=== PATIENT | male | born 1950 | race Caucasian/White ===

== ENCOUNTER 2021-10-26 10:13 | Outpatient (CLI) | payer MEDICARE, OTHER ==
[2021-10-26 11:30] LABS: #Eosinphils 0.1 10x3/uL (0.0-0.5); #Monocytes 0.6 10x3/uL (0.0-1.1); #Neutrophils 2.4 10x3/uL (1.5-8.4); %Basophils 0.4 % (0.0-2.0); %Eosinophils 1.4 % (0.0-6.0); %Lymphocytes 35.5 % (18.0-47.0); %Monocytes 13.2 % (0.0-10.0); %Neutrophils 49.3 % (40.0-75.0); Hemoglobin 16.1 g/dL (13.5-17.5); Mean Corpuscular HGB CONC 33.5 g/dL (32.0-36.0); Mean Corpuscular Hemoglobin 31.8 pg (27.0-33.0); Mean Corpuscular Volume 95.1 fl (81.2-95.1); Mean Platelet Volume 10.3 fl (7.4-10.4); Platelet Count 190 10x3/uL (150-450); RBC Distribution Width 12.3 % (11.5-14.5); Red Blood Cell (RBC) Count 5.06 10x6/uL (4.32-5.72); White Blood Cell (WBC) Count 4.8 10x3/uL (3.5-10.5)
[2021-10-26 11:47] LABS: Anion Gap 16 mmol/L (10-20); BUN (Urea Nitrogen) 21 mg/dL (8.4-25.7); Calc. Creatinine Clearance 0 mL/min (70-130); Calcium 9.3 mg/dL (7.8-10.44); Carbon Dioxide 28 mmol/L (23-31); Chloride 102 mmol/L (98-107); Glucose 86 mg/dL (83-110); Potassium 3.6 mmol/L (3.5-5.1); Sodium 142 mmol/L (136-145)
[2021-10-26 11:50] LABS: INR-International Normal Ratio 0.9; Prothrombin Time 10.5 sec (9.5-12.1)
[2021-10-26 19:53] LABS: SARS-CoV-2 PCR by NAA DETECTED (NotDetected)
== END 2021-10-26 10:14 | disposition home or self-care (01) ==
LOC: LABBT 10:13
PROVIDERS: ATTEND Orthopaedic Surgery
DX: U07.1 COVID-19 (principal); Z01.818 Encounter for other preprocedural examination; M19.011 Primary osteoarthritis, right shoulder
CPT/HCPCS: 80048; 85025; 85610; 93005; U0003; U0005; 93010

== ENCOUNTER 2021-11-26 06:03 | Observation (INO) | payer MEDICARE ==
[2021-11-26] MEDS ORDERED: Midazolam HCl 2 mg/2 ml Vial ONE (06:37)
[2021-11-26] MEDS ORDERED: Fentanyl 100 MCG/2 ML VIAL ONE ×3 (06:37→10:55)
[2021-11-26] MEDS ORDERED: Sodium Chloride 0.9% 10 ML ONE (06:42)
[2021-11-26] MEDS ORDERED: Tranexamic Acid 1,000 MG/10 ML VIAL ONE (06:49)
[2021-11-26] MEDS ORDERED: Sodium Chloride 0.9% 100 ML ONE (06:49)
[2021-11-26] MEDS ORDERED: Vancomycin 1 GM/200 ML BAG ONE (06:49)
[2021-11-26] MEDS ORDERED: Lidocaine 1% (PF) 30 ML VIAL ONE (06:59)
[2021-11-26] MEDS ORDERED: PHENYLEPHRINE-NS 100 MCG/ML 10 ML SYRINGE ONE ×2 (07:12→09:08)
[2021-11-26] MEDS ORDERED: Rocuronium Bromide 10 MG/ML (10ML VIAL) ONE (07:12)
[2021-11-26] MEDS ORDERED: Lidocaine 1% PF 5 ML VIAL ONE (07:12)
[2021-11-26] MEDS ORDERED: Ondansetron PF 4 MG/2 ML Vial ONE (07:12)
[2021-11-26] MEDS ORDERED: Dexamethasone 20 MG/5 ML VIAL ONE (07:12)
[2021-11-26] MEDS ORDERED: PROPOFOL 200 MG/20 ML VIAL ONE (07:12)
[2021-11-26] MEDS ORDERED: Bupivacaine HCl 0.5%/Epinephrine 1:200,000/PF 30 ml Vial ONE (07:15)
[2021-11-26] MEDS ORDERED: ceFAZolin 2 GM/Dextrose 50 ML IVPB ONE (07:16)
[2021-11-26] MEDS ORDERED: HYDROmorphone 2 MG/ML VIAL SLOW IVP PRN (07:23)
[2021-11-26] MEDS ORDERED: Ondansetron HCl/PF 4 MG/2 ML Vial IVP PRN (07:23)
[2021-11-26] MEDS ORDERED: Ketorolac Tromethamine 30 MG/ML VIAL IVP PRN ×2 (07:23→08:30)
[2021-11-26] MEDS ORDERED: Promethazine HCl 25 MG/ML VIAL IVPB PRN (07:23)
[2021-11-26] MEDS ORDERED: Promethazine HCl 25 MG/ML VIAL IM PRN ×2 (07:23→08:30)
[2021-11-26] MEDS ORDERED: HYDROcodone/Acetaminophen 5/325 mg Tablet PO PRN ×2 (08:30)
[2021-11-26] MEDS ORDERED: Zolpidem Tartrate 5 MG TAB PO PRN (08:30)
[2021-11-26] MEDS ORDERED: Ropivacaine 0.2% 550 ML 550 ML NERVE BLCK SCH (08:30)
[2021-11-26] MEDS ORDERED: traMADol HCl 50 MG TAB PO PRN ×2 (08:30)
[2021-11-26] MEDS ORDERED: Ondansetron PF 4 MG/2 ML Vial IVP PRN (08:30)
[2021-11-26] MEDS ORDERED: SUGAMMADEX SODIUM 200 MG/2 ML VIAL ONE (09:08)
[2021-11-26] MEDS ORDERED: Milk Of Magnesia 30 ML UDCUP PO PRN (10:38)
[2021-11-26] MEDS ORDERED: Bisacodyl 10 MG SUPP PR PRN (10:38)
[2021-11-26] MEDS ORDERED: diphenhydrAMINE 50 MG CAP PO PRN (10:38)
[2021-11-26] MEDS ORDERED: HYDROcodone/Acetaminophen 10/325 mg Tablet PO PRN ×2 (10:38)
[2021-11-26] MEDS ORDERED: Acetaminophen 325 MG TAB PO PRN (10:38)
[2021-11-26] MEDS: Dextrose 5 %-0.45 % NaCl 1,000 ML IV SCH (14:03)
[2021-11-26] MEDS: ceFAZolin 2 GM/Dextrose 50 ML 2 GM in Premix Bag 1 BAG IVPB SCH ×2 (16:40→23:30)
[2021-11-26 17:30] VITALS: BMI 25.8
[2021-11-26] MEDS ORDERED: Vancomycin 1 GM in Premix Bag 1 BAG IVPB SCH (19:00)
[2021-11-26] MEDS: Famotidine 20 MG TAB PO SCH (20:12)
[2021-11-26] MEDS ORDERED: Acetaminophen 500 MG TAB PO PRN (23:03)
[2021-11-27] MEDS: Dextrose 5 %-0.45 % NaCl 1,000 ML IV SCH (03:00)
[2021-11-27 08:20] VITALS: BP 138/70; TEMP 98.8
[2021-11-27] MEDS ORDERED: Chlorthalidone 25 MG TAB PO SCH (09:00)
[2021-11-27] MEDS ORDERED: Apixaban 5 MG TAB PO SCH (09:00)
[2021-11-27] MEDS: Famotidine 20 MG TAB PO SCH (09:05)
[2021-11-27] MEDS ORDERED: Losartan 25 MG TAB PO SCH (21:00)
== END 2021-11-27 12:12 | disposition home or self-care (01) ==
LOC: SDC 06:03 → SURG B 11:54
PROVIDERS: ADMIT Orthopaedic Surgery; ATTEND Orthopaedic Surgery
PROC: 0RRJ0JZ Replacement of Right Shoulder Joint with Synthetic Substitute, Open Approach (ICD-10-PCS; principal; 2021-11-26)
PROC: 3E0T3BZ Introduction of Anesthetic Agent into Peripheral Nerves and Plexi, Percutaneous Approach (ICD-10-PCS; 2021-11-26)
DX: M19.011 Primary osteoarthritis, right shoulder (principal); S46.111A Strain of muscle, fascia and tendon of long head of biceps, right arm, initial encounter; I10 Essential (primary) hypertension; Z79.01 Long term (current) use of anticoagulants; Z79.899 Other long term (current) drug therapy; Z96.652 Presence of left artificial knee joint
CPT/HCPCS: 23472; 64416; 97110; 97139 ×2; 97530; 97535 ×2; A4306; C1713 ×5; C1776; 96365; 96375; G0378; J0690; J1100; J2001; J2250; J2405; J2704; J2795; J3010; J3370; J3490; J7042